=== PATIENT | female | born 2000 | race Caucasian/White ===

== ENCOUNTER 2022-10-17 21:06 | Emergency (ER) | payer OTHER ==
[2022-10-17 21:14] VITALS: BP 124/78; PULSE 86; RESP 18; TEMP 98.1; BMI 41.7
[2022-10-17] MEDS ORDERED: ACETAMINOPHEN 325 MG TABLET (FP) PO ONE (21:42)
[2022-10-17 21:53] LABS: URINE APPEARANCE CLEAR; URINE BILIRUBIN NEGATIVE (NEGATIVE); URINE COLOR YELLOW; URINE GLUCOSE (UA) NEGATIVE (NEGATIVE); URINE KETONE NEGATIVE (NEGATIVE); URINE LEUK ESTERASE NEGATIVE (NEGATIVE); URINE NITRITE NEGATIVE (NEGATIVE); URINE PROTEIN NEGATIVE (NEGATIVE); URINE UROBILINOGEN 0.2 mg/dL (0.2-1.0)
[2022-10-17 22:20] LABS: BASO % 0.5 % (0-2.0); EOS % 2.8 % (0-4.5); HEMATOCRIT 37.3 % (32.4-45.2); HEMOGLOBIN 12.7 GM/dL (10.7-15.3); LYMPH % 30.7 % (8-40); MCH 29.3 pg (25.7-33.7); MEAN PLT VOLUME 6.6 fl (7.5-11.1); PLATELET COUNT 323 10^3/uL (134-434); RBC 4.33 M/mm3 (3.60-5.2); RDW 13.7 % (11.6-15.6); WHITE BLOOD COUNT 9.3 K/mm3 (4.0-10.0)
[2022-10-17 22:40] LABS: CALCIUM 8.6 mg/dL (8.5-10.1)
[2022-10-17 22:41] LABS: ALBUMIN 3.6 g/dl (3.4-5.0); BLOOD UREA NITROGEN 14.2 mg/dL (7-18)
[2022-10-17 22:44] LABS: CREATININE 0.8 mg/dL (0.55-1.3)
[2022-10-17 22:46] LABS: BILIRUBIN,TOTAL 0.2 mg/dL (0.2-1); TOT PROT 6.7 g/dl (6.4-8.2)
== END 2022-10-17 23:57 | disposition home or self-care (01) ==
LOC: JER 21:06
DX: O26.891 Other specified pregnancy related conditions, first trimester (principal); M54.50 Low back pain, unspecified; Z3A.01 Less than 8 weeks gestation of pregnancy
CPT/HCPCS: 36415; 76817-TC; 80053; 81003; 84702; 85025; 86850; 86900; 86901; 87077; 87086; 99284-25

== ENCOUNTER 2023-03-14 22:21 | Emergency (ER) | payer OTHER ==
[2023-03-14 22:28] VITALS: BMI 44.1
[2023-03-14] MEDS ORDERED: ACETAMINOPHEN 325 MG TABLET (FP) PO ONE (23:27)
[2023-03-14] MEDS ORDERED: ACETAMINOPHEN 325 MG TABLET (FP) ONE (23:31)
[2023-03-15 01:05] VITALS: BP 125/62; PULSE 96; RESP 18; TEMP 98.2
== END 2023-03-15 01:26 | disposition home or self-care (01) ==
LOC: JER 22:21
DX: O26.892 Other specified pregnancy related conditions, second trimester (principal); R50.9 Fever, unspecified; R07.0 Pain in throat; R05.9 Cough, unspecified; R09.81 Nasal congestion; O98.512 Other viral diseases complicating pregnancy, second trimester; U07.1 COVID-19; R00.2 Palpitations; Z3A.27 27 weeks gestation of pregnancy
CPT/HCPCS: 0241U-QW; 87651; 99283-25